=== PATIENT | male | born 1990 | race Caucasian/White ===

== ENCOUNTER 2017-08-21 00:22 | Emergency (ER) | payer SELFPAY ==
[~2017-08-21] VITALS: Ht 175.3 cm; Wt 89.9 kg
[2017-08-21] MEDS ORDERED: CLEOCIN300 MG PO (02:13)
[2017-08-21] MEDS ORDERED: NORCO 5/3251 TABLET PO (02:13)
[2017-08-21 02:32] VITALS: BP 159/89
== END 2017-08-21 02:33 | disposition home or self-care (01) ==
LOC: EME 00:22
DX: K04.7 Periapical abscess without sinus (principal); J45.909 Unspecified asthma, uncomplicated; Z88.0 Allergy status to penicillin
CPT/HCPCS: 99281; 99283